=== PATIENT | female | born 1940 | race Caucasian/White ===

== ENCOUNTER 2016-08-20 08:49 | Day surgery (SDCO) | payer MEDICARE, OTHER ==
[~2016-08-20] VITALS: Ht 157.5 cm; Wt 66.0 kg
[2016-08-20 09:30] LABS: BASOPHIL 0.5 % (0-2); EOSINOPHIL 2.4 % (0-7); HCT 45.9 % (37.0-47.0); HGB 14.8 g/dl (12.5-16.0); LYMPHOCYTE 30.3 % (15-48); MCH 28.2 pg (25.0-31.0); MCHC 32.2 g/dL (32.0-36.0); MCV 87.4 fL (78.0-100.0); MONOCYTE 6.8 % (0-12); MPV 11.1 fL (6.0-9.5); PLT 211 K/uL (150-400); RBC 5.25 M/uL (4.20-5.40); RDW 14.8 % (11.5-14.0); WBC 5.8 K/uL (4.0-10.5)
[2016-08-20 09:40] LABS: ALBUMIN 4.5 g/dL (3.4-4.8); BILIRUBIN - TOTAL 0.6 mg/dL (0.1-1.0); CREATININE 0.9 mg/dL (0.5-1.0); GLOBULIN (CALCULATION) 2.7 g/dL (2.2-4.2); POTASSIUM 3.9 mmol/L (3.5-5.1); TOTAL PROTEIN 7.2 g/dL (6.4-8.3)
[2016-08-20 15:39] LABS: CKMB 2.44 ng/mL (0.97-4.94); TROPONIN T < 0.010 ng/mL
[2016-08-20 15:49] LABS: FT4 (FREE T4) 1.29 ng/dL (0.93-1.70); TSH (THYROID STIM HORMONE) 1.75 uIU/mL (0.270-4.200)
[2016-08-20 21:32] LABS: TROPONIN T < 0.010 ng/mL
[2016-08-21] MEDS ORDERED: SYNTHROID50 MCG PO (08:56)
[2016-08-21] MEDS ORDERED: ATENOLOL25 MG PO (08:57)
[2016-08-21] MEDS ORDERED: ASPIRIN CHEWABL81 MG PO (08:57)
--- NOTE | 2016-08-21 09:30 | NUR ---
IV SITE D/C'D;PRESSURE DRESSING APPLIED. DISCHARGE INSTRUCTIONS GIVEN;PT & PT'S SPOUSE VERBALIZED UNDERSTANDING. ESCORTED TO MOTOR VEHICLE PER WC. D/C FROM FACILITY.
== END 2016-08-21 09:15 | disposition home or self-care (01) ==
LOC: FER 08:49 → FTCU 13:40
PROVIDERS: Internal Medicine; ADMIT Internal Medicine
DX: R00.2 Palpitations (principal); I11.9 Hypertensive heart disease without heart failure; R55 Syncope and collapse; I44.7 Left bundle-branch block, unspecified; E03.9 Hypothyroidism, unspecified; Z82.3 Family history of stroke; Z82.49 Family history of ischemic heart disease and other diseases of the circulatory system; Z79.82 Long term (current) use of aspirin; Z90.710 Acquired absence of both cervix and uterus
CPT/HCPCS: 36415; 71010; 71275; 80053; 80061; 82553; 84439; 84443; 84484; 85025; 85379; 93005; G0378; Q9967